=== PATIENT | male | born 1995 | race African-American/Black ===

== ENCOUNTER 2018-07-21 10:13 | Inpatient (IN) ==
[2018-07-21] MEDS ORDERED: Bisacodyl 10 MG Supp RECTAL PRN (10:39)
[2018-07-21] MEDS ORDERED: Aluminum/Magnesium/Simethacone Susp 30 ML UDC PO PRN (10:39)
[2018-07-21] MEDS ORDERED: Haloperidol Inj 5 MG/ML Ampul IM ONE ×2 (14:08→14:23)
[2018-07-21] MEDS ORDERED: Haloperidol Inj 5 MG/ML Ampul ONE (14:11)
--- NOTE | 2018-07-21 14:24 | P.CONPSY ---
Provisional Diagnosis Admission Date: July 21, 2018 10:40 [place] I.: Unspecified psychosis, R/O substance-induced psychosis, R/O schizophrenia, R/O cannabis use disorder [place] II.: Cluster A traits, R/O schizotypal personality [place] III.: No significant medical history [place] IV.: Limited interaction with friends, has stopped going to work, cannabis use [place] V.: 35 History of Present Illness Service: ER Primary Care Provider: UNKNOWN History of Present Illness: The patient is a 22-year-old -G[place]ian man, domiciled with his parents in [place], first time at [facility], employed, single, without no previous psychiatric history other than cannabis use disorder, no previous suicidal attempts, no previous psychiatric hospitalizations, no significant medical history, who was brought to the hospital on the Dia act transfer from [facility] in [place]. According with the Dia act the patient has been presenting new onset symptoms of psychosis consisting of paranoia and bizarre behavior. The patient was accepted by me through the transfer center. Paper chart was reviewed. Labs were unremarkable, as well as head CT. On my psychiatric evaluation today I find a patient that is quite oddly related, a little bit expansive and laughing inappropriately. Patient reports that he does not really know the reason he is here. He says that he has been doing quite okay at work, but a little bit of stress. He says that he has been using a lot of bottles of O2 to purify his blood and his skin. He says that he is a very spiritual person, and at this point he started laughing and says that he does not want to talk about this. The patient often becomes quite tangential and disorganized needing redirection. He denies suicidal and homicidal ideation , denies 12 and auditory hallucinations, even though he seems to be internally stimulated. Some point of the interview the patient become a little bit agitated, requesting to be discharged, hyperactive, tried to run away of the J pod and had to be medicated with 5 Haldol and 2 of Ativan. As per mother collateral information, Lisa Whipple, , patient was at baseline until about 4 days ago when he started to act very bizarre at home, walking back and forward, purposeless, and she noted that he was talking to himself very often inside his room. She became quite concerned when he stopped going to work and she noted that his was calling him concerned about these because the patient usually responsible with his job. She says that the patient has being a sleeping poorly, has not been taking showers, has been acting like another person taking very weird noises with his mouth. She says that the patient does not have any psychiatric history, but he is a very smart kid, that he was an honor student, but at the same time she says that in the last 2 years he has been mostly secluded, with no friends and mostly interacting with others through computer. She says that another concerning thing about the patient is that he has lost a significant amount of pounds in the last year intentionally, but he has been doing very we are diets, including using several borders of oxygen every day PPHx: No psychiatric history, no pre-suicide attempts, no previous psychiatric hospitalization PMHx: No medical history Social Hx: Patient was born and raised in [facility], he lives in [place] with his parents, employed, single, his highest level of education is high school Family Hx: No family psychiatric Substance Hx: He reports occasional use of marijuana denies other illegal drugs , denies use of alcohol Review of Systems All other systems reviewed negative except as stated in HPI Psychiatric: Reports irritability, Reports memory loss, Reports mood swings ( Internally stimulated), Reports paranoia PMFSH - History History Provided By: Patient - Medical History Medical History: Medical History (Last Updated 07/21/18 @ 10:42 by Holly Damon RN) Patient denies medical problems - Surgical History Surgical History: Surgical History (Last Updated 07/21/18 @ 10:42 by Holly Damon RN) No history of previous surgery - Tobacco History Second Hand Smoke Exposure: No Smoking Status: Never smoker - Alcohol History How Often Do You Have a Drink Containing Alcohol: Never - Substance Use History Substance History: No History of Abuse - Immunization History Tetanus Immunization: Unsure Medications and Allergies Active Medications: Active Medications Al Hydrox/Mg Hydrox/Simethicone (Mag-Al Plus Susp Liq) 30 ml PO Q6H PRN PRN Reason: DYSPEPSIA Al Hydroxide/Mg Hydroxide (Milk Of Magnesia Liq) 30 ml PO Q12H PRN PRN Reason: Mild Constipation Bisacodyl (Dulcolax Supp) 10 mg RECTAL DAILY PRN PRN Reason: SEVERE CONSITIPATION Lactulose (Lactulose Liq) 30 ml PO DAILY PRN PRN Reason: SEVERE CONSITIPATION Senna/Docusate Sodium (Jovita-Colace) 1 tab PO BID SARAH Sennosides (Senokot) 17.2 mg PO Q12H PRN PRN Reason: Moderate Constipation Allergies Allergy/AdvReac Type Severity Reaction Status Date / Time No Known Allergies Allergy Verified 07/21/18 10:38 Home Medications Medication Instructions Recorded Confirmed Type No Known Home Medications 07/21/18 07/21/18 History Exam Vital signs: Vital Signs 07/21/18 10:38 Temperature 97.6 F Pulse Rate 62 Respiratory Rate 14 Blood Pressure 133/82 Pulse Oximetry 97 Intake & Output 07/20/18 07/21/18 07/21/18 18:59 06:59 18:59 Weight 78 kg Mental Status Examination Appearance: Appropriate Consciousness: Alert Orientation: x4 Motor Activity: Normal gait Speech: Unremarkable Language: Adequate Fund of Knowledge: Adequate Attention and Concentration: Adequate Memory: Unremarkable Mood: Irritable Affect: Irritable, Other (Inappropriate) Thought Process & Associations: Loose associations Thought Content: Bizarre thinking, Racing thoughts, Preoccupations, Delusional Hallucination Type: None Delusion Type: Bizarre, Paranoid Suicidal Ideation: No Suicidal Plan: No Suicidal Intention: No Homicidal Ideation: No Homicidal Plan: No Homicidal Intention: No Insight: Poor Judgment: Poor Assessment and Plan - Assessment (1) Unspecified psychosis Code(s): F29 - Unspecified psychosis not due to a substance or known physiological condition Status: Acute - Plan Plan: On psychiatric evaluation today the patient presents very oddly related, with an appropriate and labile affect, internally preoccupied and tangential. During the evaluation the patient becomes paranoid, agitated and try to elope from the J pod needing to be medicated with Haldol 5 mg and Ativan 2 mg IM. As per mother, the patient in the last 4 days has been acting out of character, talking to himself, secluded in his room, not taking care of himself, has not gone to work and has been sleeping poorly. He does not have any previous psychiatric history, no hospitalizations, no suicide attempts. He does not use cannabis and has been increasingly using borders of Liquid oxygen in his diet "to clean his blood and to be healthier". Routine labs and head CT done in [facility] are unremarkable. Patient has elevated risk of danger to self and others due to the level of psychosis. He needs psychiatric admission for stabilization. We will start the patient in Abilify 5 mg daily for psychosis. Will be transferred to 2700 unit. Justification for Continued Inpatient Stay: Continue psychiatric admission
--- NOTE | 2018-07-21 14:24 | ED ---
HPI General Chief Complaint: Psychiatric Symptoms Stated Complaint: Tejasy Eval Time Seen by Provider: 07/21/18 14:04 Source: other (Dia act report and previous medical record from transfer facility) Mode of arrival: ambulatory Limitations: other (Aggressive behavior, agitated) History of Present Illness HPI Narrative: Due to the patient being unsafe to make contact with, agitated, and angry at this time, my HPI is limited. I reviewed his Dia act report and previous records from the transferring facility, [facility]. 22- year-old male presents to the emergency department under Dia act as a transfer from [facility]. The patient is agitated, uncooperative , and is being observed and calmed by security at this time. They say it is unsafe to question the patient, as it just makes him more irritated and angry. My HPI was obtained from the nurses, previous medical records at the transferring facility, and Dia act report. According to the Dia act report the patient is acutely psychotic with hallucinations, laughing inappropriately, acting bizarre and getting agitated and angry. Patient does not have ability to make decisions and is a danger to himself. According to the HPI from [facility] the patient was brought into the ED complaining of hearing things and seeing things, displaying bizarre behaviors for the past 4-5 days. States the patient is a poor historian, acting silly and bizarre, getting upset making faces while watching TV. The mother reported that the patient did fast for 2 weeks during giving time, drink water and ate kale salad for several days. He also use the supplement "improving held at cellular level 02", 15 drops sublingual 3 times a day. Mother found the bottle and emptied it. Patient is not going to work for 3-4 days isolated in his room his boss is asking voluntary resignation. The patient denied suicidal homicidal ideations or plans. Patient is acting very silly and getting agitated during the interview. He was home schooled and completed 12 grade. Mother reported that he is not sleeping and playing video games with friends at night at times. Related Data Home Medications Medication Instructions Recorded Confirmed No Known Home Medications 07/21/18 07/21/18 Allergies Allergy/AdvReac Type Severity Reaction Status Date / Time No Known Allergies Allergy Verified 07/21/18 10:38 Review of Systems ROS Unobtainable ROS Unobtainable: unobtainable due to mental condition (Patient is unsafe to question at this time secondary to agitation and anger) and other PMFSH Medical History Medical History Patient denies medical problems (Acute) Surgical History Surgical History No history of previous surgery (Acute) Social History Social History Substance History: No History of Abuse Second Hand Smoke Exposure: No Smoking Status: Never smoker How Often Do You Have a Drink Containing Alcohol: Never Immunization History Tetanus Immunization: Unsure Exam Narrative Exam Narrative: Physical exam is limited secondary to patient being unsafe to approach at this time; physical exam done by visualization GENERAL: Well-nourished, well-developed black male patient, in no acute distress ; agitated SKIN: Warm and dry. HEAD: Atraumatic. Normocephalic. EYES: Pupils equal and round. No scleral icterus. No injection or drainage. ENT: Mucosa pink and moist. Airway patent. NECK: Trachea midline. CARDIOVASCULAR: Regular rate. RESPIRATORY: No accessory muscle use. GASTROINTESTINAL: Flat. MUSCULOSKELETAL: No obvious deformities. NEUROLOGICAL: Awake and alert. No obvious cranial nerve deficits. Motor grossly within normal limits. Normal speech. PSYCHIATRIC: Agitated, angry Course Initial Documented Vital Signs Temperature 97.6 F 07/21/18 10:38 Pulse Rate 62 07/21/18 10:38 Respiratory Rate 14 07/21/18 10:38 Blood Pressure 133/82 07/21/18 10:38 Pulse Oximetry 97 07/21/18 10:38 Last Documented Vital Signs Temperature 98.5 F 07/21/18 15:18 Pulse Rate 68 07/21/18 15:18 Respiratory Rate 16 07/21/18 15:18 Blood Pressure 144/69 H 07/21/18 15:18 Pulse Oximetry 100 07/21/18 15:18 Medical Decision Making MDM Narrative Medical decision making narrative: Patient presents under a Dia act. Physical examination by visualization and vital signs are essentially unremarkable. Patient was received by transfer facility and accepted for inpatient admission by Dr. Richardson, who has already admitted him to psychiatry. I reviewed the patient's medical records from transferring facility and CBC, CMP , urinalysis unremarkable. Positive for cannabinoids, otherwise drug screen is negative. EtOH less than 10. CT brain was unremarkable. Patient is medically cleared for psychiatry. Medical Screen Exam Complete: Yes Emergency Medical Condition: Yes Differential Diagnosis Differential Diagnosis: Acute psychosis, schizophrenia, substance-induced psychosis, medical clearance for psychiatric evaluation Discharge Plan Discharge Disposition Patient Disposition: Sign Out(ED Internal Use Only) Discharge Condition Condition: Stable Discharge Order Discharge Orders: ED Use Only Admit Order (Routine); Ordered 07/21/18 Ordered By: Praneeth Morales Discharge Details Diagnosis: Encounter for psychiatric assessment Physicians Team ED Provider: Osmin Ramirez ED Midlevel Provider: Mary Gregory Primary Care Provider: UNKNOWN, Attending Provider: Praneeth Morales Discharge Interventions Interventions: ED Discharge Assessment Last Done: 07/21/18 15:10 Vital Signs Last Done: 07/21/18 15:18 Status ED Status: Admitted Patient
[2018-07-21] MEDS: Senna/Docusate Sodium 8.6/50 MG Tablet PO SCH (21:26)
[2018-07-22] MEDS: Senna/Docusate Sodium 8.6/50 MG Tablet PO SCH ×2 (09:20→21:39)
[2018-07-22 11:40] LABS: Anion Gap 8 meq/L (5-15); Blood Urea Nitrogen 7 mg/dL (7-18); Calcium 8.5 mg/dL (8.5-10.1); Carbon Dioxide 28.5 meq/L (21.0-32.0); Chloride 107 meq/L (98-107); Glomerular Filtration Rate Greater Than 89 mL/min (>89); Glucose,Random 83 mg/dL (74-106); Potassium 4.1 meq/L (3.5-5.1); Sodium 143 meq/L (136-145)
[2018-07-22 11:41] LABS: Cholesterol 86 mg/dL (120-200); Triglycerides 57 mg/dL (42-150)
[2018-07-22 11:43] LABS: Chol/HDL Ratio 1.59 Ratio; HDL Cholesterol 53.8 mg/dL (40.0-60.0); LDL Cholesterol,Calculated 21 mg/dL (0-99)
[2018-07-22 14:05] LABS: Hemoglobin A1c 5.5 % (4.3-6.0)
--- NOTE | 2018-07-22 16:27 | P.HPPSY ---
Provisional Diagnosis Admission Date: July 21, 2018 10:40 [place] I.: Unspecified psychosis, R/O substance-induced psychosis, R/O schizophrenia, R/O cannabis use disorder [place] II.: Cluster A traits, R/O schizotypal personality [place] III.: No significant medical history [place] IV.: Limited interaction with friends, has stopped going to work, cannabis use [place] V.: 35 Competence Certification of Person's Competence To Provide Express and Informed Consent I have personally examined Red Whipple JR, a person being served at [facility] onJuly 22, 2018 1622. Express and informed consent means consent voluntarily given in writing, by a competent person, after sufficient explanation and disclosure of the subject matter involved to enable the person to make a knowing and willful decision without any element of force, fraud, deceit, duress, or other form of constraint or coercion. This person is 18 years of age or older, is not now known to be incompetent to consent to treatment with a guardian advocate, and does not have a health care surrogate or proxy currently making medical treatment decisions. I have found this person to be one of the following: [] Competent to provide express and informed consent, as defined above, for voluntary admission to this facility and is competent to provide express and informed consent for treatment. He/she has the consistent capacity to make well reasoned, willful, and knowing decisions concerning his or her medical or mental health treatment. The person fully and consistently understands the purpose of the admission for examination/placement and is fully capable of personally exercising all rights assured [place] [X] Incompetent to provide express and informed consent to voluntary admission, and this is incompetent to provide express and informed consent to treatment. The person must be transferred to involuntary status and a petition for a guardian advocate filed with the Circuit Court. [] Refusing to provide express and informed consent to voluntary admission but is competent to provide express and informed consent for treatment. The person must be discharged or transferred to involuntary status. Form shall be completed within 24 hours of a person's arrival at the receiving facility and filed in the clinical record of each person: 1. Admitted on a voluntary basis 2. Permitted to provide express and informed consent to his/her own treatment 3. Allowed to transfer from involuntary to voluntary status 4. Prior to permitting a person to consent to his or her own treatment after having been previously found incompetent to consent to treatment. History of Present Illness Capacity: Lacks capacity History of Present Illness: Patient is a 22-year-old male with cannabis use disorder no other psychiatric history presenting here with a Dia act with bizarre behavior. Patient was already petitioned by the psychiatrist. As noted below, patient has been acting bizarre and disorganized. Responding to internal stimuli. Patient has very poor insight concerning his behavior and admission and says "I am 22 years old, I am just the a fun rosio." Nursing notes patient responding to internal stimuli, laughing inappropriately. Last night he was agitated and closely getting en eto but ended up not getting one. At this time, he denies auditory or visual hallucinations, no specific delusions were elicited. He denies suicidal or homicidal ideation intent or plan. Patient denies history of manic episodes after reviewing criteria with him. Denies depressed mood According with the Dia act the patient has been presenting new onset symptoms of psychosis consisting of paranoia and bizarre behavior. The patient was accepted by me through the transfer center. Paper chart was reviewed. Labs were unremarkable, as well as head CT. On my psychiatric evaluation today I find a patient that is quite oddly related, a little bit expansive and laughing inappropriately. Patient reports that he does not really know the reason he is here. He says that he has been doing quite okay at work, but a little bit of stress. He says that he has been using a lot of bottles of O2 to purify his blood and his skin. He says that he is a very spiritual person, and at this point he started laughing and says that he does not want to talk about this. The patient often becomes quite tangential and disorganized needing redirection. He denies suicidal and homicidal ideation, denies 12 and auditory hallucinations, even though he seems to be internally stimulated. Some point of the interview the patient become a little bit agitated, requesting to be discharged, hyperactive, tried to run away of the J pod and had to be medicated with 5 Haldol and 2 of Ativan. As per mother collateral information, Edgardo Whipple, , patient was at baseline until about 4 days ago when he started to act very bizarre at home, walking back and forward, purposeless, and she noted that he was talking to himself very often inside his room. Past psych: No inpatient, outpatient, medication history Past medical: Denies Past Famhx: Denies Past Social: Patient graduated high school and works full-time from home. 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 Uses marijuana sporadically. - Inpatient Certification I certify that the inpatient services were ordered in accordance with Medicare regulations governing the order. This includes certification that hospital inpatient services are reasonable and necessary and in the case of services not specified as inpatient-only under 42 CFR 419.22(n), that they are appropriately provided as inpatient services in accordance to with the 2-midnight benchmark under 43 CFR 412.3(e) I certify that inpatient psychiatric hospital services are medically necessary. Evaluation and treatment and/or diagnostic testing are expected to improve the patient's condition. The patient needs on a daily basis, active treatment furnished directly by or requiring the supervision of inpatient psychiatric facility personnel. Estimated Total Length of Stay (Days): 7 Plans for Post Hospital Care: Home Review of Systems All other systems reviewed negative except as stated in HPI PMFSH - History History Provided By: Patient - Medical History Medical History: Medical History (Last Reviewed 07/21/18 @ 15:32 by PERICO Melendrez) Patient denies medical problems - Surgical History Surgical History: Surgical History (Last Reviewed 07/22/18 @ 16:27 by Severino Hansen DO) No history of previous surgery - Tobacco History Second Hand Smoke Exposure: No Smoking Status: Never smoker - Alcohol History How Often Do You Have a Drink Containing Alcohol: Never - Substance Use History Substance History: No History of Abuse - Travel History Recent Travel in the [place] Within the Last 8 Weeks: No Recent Travel Out of the Country Within the Last 8 Weeks: No - Immunization History Tetanus Immunization: Unsure Hx Influenza Vaccine This Season: No Medications and Allergies Active Medications: Active Medications Al Hydrox/Mg Hydrox/Simethicone (Mag-Al Plus Susp Liq) 30 ml PO Q6H PRN PRN Reason: DYSPEPSIA Al Hydroxide/Mg Hydroxide (Milk Of Magnesia Liq) 30 ml PO Q12H PRN PRN Reason: Mild Constipation Bisacodyl (Dulcolax Supp) 10 mg RECTAL DAILY PRN PRN Reason: SEVERE CONSITIPATION Lactulose (Lactulose Liq) 30 ml PO DAILY PRN PRN Reason: SEVERE CONSITIPATION Senna/Docusate Sodium (Jovita-Colace) 1 tab PO BID SARAH Last Admin: 07/22/18 09:20 Dose: Not Given Sennosides (Senokot) 17.2 mg PO Q12H PRN PRN Reason: Moderate Constipation Allergies Allergy/AdvReac Type Severity Reaction Status Date / Time No Known Allergies Allergy Verified 07/21/18 10:38 Home Medications Medication Instructions Recorded Confirmed Type No Known Home Medications 07/21/18 07/21/18 History Results - Labs CBC & Chem 7: 07/22/18 10:38 Labs: Laboratory Results - last 24 hr 07/22/18 07/22/18 10:38 10:38 Sodium 143 Potassium 4.1 Chloride 107 Carbon Dioxide 28.5 Anion Gap 8 BUN 7 Creatinine 0.81 Estimated GFR Greater than 89 Random Glucose 83 Hemoglobin A1c 5.5 Calcium 8.5 Triglycerides 57 Cholesterol 86 L LDL Cholesterol, Calc 21 HDL Cholesterol 53.8 Cholesterol/HDL Ratio 1.59 Exam Vital signs: Vital Signs 07/22/18 06:00 Temperature 98.3 F Pulse Rate 78 Respiratory Rate 18 Blood Pressure 128/80 Pulse Oximetry 99 Intake & Output 07/21/18 07/22/18 07/22/18 18:59 06:59 18:59 Weight 75 kg 75 kg Other: Weight On Admission 75 kg Mental Status Examination Appearance: Appropriate Consciousness: Alert Orientation: x4 Motor Activity: Normal gait Speech: Unremarkable Language: Adequate Fund of Knowledge: Adequate Attention and Concentration: Adequate Memory: Unremarkable Mood: Irritable Affect: Irritable, Other (Inappropriate) Thought Process & Associations: Loose associations Thought Content: Bizarre thinking, Racing thoughts, Preoccupations, Delusional Hallucination Type: None Delusion Type: Bizarre, Paranoid Suicidal Ideation: No Suicidal Plan: No Suicidal Intention: No Homicidal Ideation: No Homicidal Plan: No Homicidal Intention: No Insight: Poor Judgment: Poor Assessment and Plan - Assessment (1) Unspecified psychosis Code(s): F29 - Unspecified psychosis not due to a substance or known physiological condition Status: Acute - Plan Plan: I agree with the first opinion to continue petition. Criteria include acute psychosis. A call was placed to the patient's mother, edgardo, but there was no answer. I recommend another phone call tomorrow to get more collateral and get consent for medication Justification for Continued Inpatient Stay: Patient would decompensate in a less restrictive setting
[2018-07-23] MEDS: Senna/Docusate Sodium 8.6/50 MG Tablet PO SCH ×2 (08:11→20:54)
--- NOTE | 2018-07-23 10:49 | P.PNPSY ---
Subjective Remarks: Patient seen and examined with nurse, Bekah in weekend coverage for Dr. Morales. Admission note by Dr. Hansen noted. On my exam, patient presents as oddly related with a silly affect. He denies AVH but appears internally stimulated. He denies SI/HI. Mood is "excellent!" No physical complaints. Spoke with patient's mother, Lisa Whipple, at number in Dr. Morales's note. We discuss patient's history and circumstances of patient's presentation here. She is willing to serve as HCS. Lengthy discussion with mother regarding pharmacotherapeutic options for empiric management of psychotic symptoms. We discussed the typical and atypical antipsychotic classes. We reviewed the metabolic and motor side effects including EPS, tardive dyskinesia and NMS of antipsychotic therapy. We settle on a trial of Geodon. I spent 12 minutes in telephone consultation with patient's mother. Vital Signs Temp Pulse Resp BP Pulse Ox 07/23/18 06:00 98 F 58 L 17 141/90 H 100 07/22/18 18:06 98.2 F 68 18 128/77 98 Laboratory Tests 07/22/18 07/22/18 10:38 10:38 Sodium 143 Potassium 4.1 Chloride 107 Carbon Dioxide 28.5 Anion Gap 8 BUN 7 Creatinine 0.81 Estimated GFR Greater than 89 Random Glucose 83 Hemoglobin A1c 5.5 Calcium 8.5 Triglycerides 57 Cholesterol 86 L LDL Cholesterol, Calc 21 HDL Cholesterol 53.8 Cholesterol/HDL Ratio 1.59 Review of Systems All other systems reviewed negative except as stated in HPI (Limitation: Psychosis) Mental Status Examination Appearance: Appropriate Consciousness: Alert Orientation: x4 Motor Activity: Normal gait, Other (No motor abnormalities noted) Speech: Unremarkable Language: Adequate Fund of Knowledge: Adequate Attention and Concentration: Adequate Memory: Unremarkable Mood: Other ("Excellent") Affect: Other (Somewhat expansive) Thought Process & Associations: Loose associations Thought Content: Bizarre thinking, Hallucinations Hallucination Type: Other (Denies AVH but appears internally preoccupied) Delusion Type: None Suicidal Ideation: No Suicidal Plan: No Suicidal Intention: No Homicidal Ideation: No Homicidal Plan: No Homicidal Intention: No Insight: Poor Judgment: Poor Assessment and Plan - Assessment (1) Unspecified psychosis Code(s): F29 - Unspecified psychosis not due to a substance or known physiological condition Status: Acute - Plan Plan: Initiate Geodon 40 mg twice daily with meals to target psychotic symptoms with plans to titrate as tolerated and to effect. Check EKG for QTC. Hold antipsychotic if QTC is greater than 450 ms. Continue to monitor on inpatient unit. Continue other medications and care as ordered. Justification for Continued Inpatient Stay: Impairment in reality construction. High risk for decompensation and less restrictive environment. Medication changes. Discharge Planning: Pending psychiatric stabilization. Request Healthcare Surrogate/Guardian Advocate?: Yes
[2018-07-23 15:56] VITALS: RESP 18
[2018-07-24] MEDS: Senna/Docusate Sodium 8.6/50 MG Tablet PO SCH ×2 (08:39→21:14)
--- NOTE | 2018-07-24 12:16 | P.PNPSY ---
Subjective Remarks: The patient was seen today for psychiatric reevaluation. Case was discussed with nursing charge. The patient was seen in the recreational area of [id number]. On my psychiatric evaluation the patient is found interacting with other peers, he is calm, cooperative, pleasant. Patient reports that he has been having a very good time here in the unit, he seems to be childish and silly, but appropriate affect. He reports to be taking his medications, no significant side effects, the patient has a times quite bizarre ideas, but he does not seem to be floridly psychotic, he denies suicidal and homicidal ideation, he denies visual and auditory hallucinations. He is fully oriented x3. No agitation, no aggressive behavior reported. Mental Status Examination Appearance: Appropriate Consciousness: Alert Orientation: x4 Motor Activity: Normal gait, Other (No motor abnormalities noted) Speech: Unremarkable Language: Adequate Fund of Knowledge: Adequate Attention and Concentration: Adequate Memory: Unremarkable Mood: Other ("Excellent") Affect: Other (Somewhat expansive) Thought Process & Associations: Loose associations Thought Content: Bizarre thinking, Hallucinations Hallucination Type: Other (Denies AVH but appears internally preoccupied) Delusion Type: None Suicidal Ideation: No Suicidal Plan: No Suicidal Intention: No Homicidal Ideation: No Homicidal Plan: No Homicidal Intention: No Insight: Poor Judgment: Poor Assessment and Plan - Assessment (1) Unspecified psychosis Code(s): F29 - Unspecified psychosis not due to a substance or known physiological condition Status: Acute - Plan Plan: Patient presents oddly related, at times bizarre, but denies suicidal enemas ideation, he denies visual and auditory hallucinations. The patient is compliant with medications. Justification for Continued Inpatient Stay: Continue psychiatric admission for stabilization. Request Healthcare Surrogate/Guardian Advocate?: Yes
--- NOTE | 2018-07-24 12:26 | ECG ---
Date Performed: 07/23/2018 Time Performed: 13:08:15 PTAGE: 22 years EKG: Sinus rhythm NORMAL ECG NO PREVIOUS TRACING DOCTOR: Venkatesh Beltrán Interpretating Date/Time 07/24/2018 12:24:12
[2018-07-25 06:04] VITALS: BP 119/82; PULSE 55; TEMP 97.8; O2SAT 100
[2018-07-25] MEDS: Senna/Docusate Sodium 8.6/50 MG Tablet PO SCH (08:39)
--- NOTE | 2018-07-25 11:46 | P.DSPSY ---
Psychiatry Discharge Summary Inpatient Psychiatric care?: Yes Advance Directives: No Mental Health Advance Directive: Yes Health Care Proxy: Yes - Admission Admission Date: July 21, 2018 10:40 Brief History: Patient is a 22-year-old male with cannabis use disorder no other psychiatric history presenting here with a Dia act with bizarre behavior. Patient was already petitioned by the psychiatrist. As noted below, patient has been acting bizarre and disorganized. Responding to internal stimuli. Patient has very poor insight concerning his behavior and admission and says "I am 22 years old, I am just the a fun rosio." Nursing notes patient responding to internal stimuli, laughing inappropriately. Last night he was agitated and closely getting en eto but ended up not getting one. At this time, he denies auditory or visual hallucinations, no specific delusions were elicited. He denies suicidal or homicidal ideation intent or plan. Patient denies history of manic episodes after reviewing criteria with him. Denies depressed mood According with the Dia act the patient has been presenting new onset symptoms of psychosis consisting of paranoia and bizarre behavior. The patient was accepted by me through the transfer center. Paper chart was reviewed. Labs were unremarkable, as well as head CT. On my psychiatric evaluation today I find a patient that is quite oddly related, a little bit expansive and laughing inappropriately. Patient reports that he does not really know the reason he is here. He says that he has been doing quite okay at work, but a little bit of stress. He says that he has been using a lot of bottles of O2 to purify his blood and his skin. He says that he is a very spiritual person, and at this point he started laughing and says that he does not want to talk about this. The patient often becomes quite tangential and disorganized needing redirection. He denies suicidal and homicidal ideation, denies 12 and auditory hallucinations, even though he seems to be internally stimulated. Some point of the interview the patient become a little bit agitated, requesting to be discharged, hyperactive, tried to run away of the J pod and had to be medicated with 5 Haldol and 2 of Ativan. As per mother collateral information, Lisa Whipple, , patient was at baseline until about 4 days ago when he started to act very bizarre at home, walking back and forward, purposeless, and she noted that he was talking to himself very often inside his room. Past psych: No inpatient, outpatient, medication history Past medical: Denies Past Famhx: Denies Past Social: Patient graduated high school and works full-time from home. 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 Uses marijuana sporadically. Tobacco Use In Past 30 Days: No How Often Do You Have a Drink Containing Alcohol: Never Hospital Course: The patient is a 22-year-old -Swedish man, domiciled with his parents in [place], first time at [facility], employed, single, without no previous psychiatric history other than cannabis use disorder, no previous suicidal attempts, no previous psychiatric hospitalizations, no significant medical history, who was brought to the hospital on the Dia act transfer from [facility] in [place]. According with the Dia act the patient has been presenting new onset symptoms of psychosis consisting of paranoia and bizarre behavior. The patient was accepted by me through the transfer center. Paper chart was reviewed. Labs were unremarkable, as well as head CT. Patient was initially admitted due to bizarre behavior, paranoia, self talking. He was a started taking Geodon 20 mg 2 times daily that was titrated up to 40 mg twice daily, as patient could tolerate. During that hospitalization the patient showed significant improvement with this regimen. He was quite social, well behaved, initially calm and cooperative. No agitation, no aggressive behavior reported. At the moment of the discharge the patient continues to be a little bit oddly related, but logical, coherent and relevant, he denies suicidal enemas ideation, denies visual and auditory hallucinations. The patient is in a good moment, and a low level of risk, to continue his psychiatric care as an outpatient. - Discharge Discharge Date: 07/25/18 - Discharge Diagnosis (1) Unspecified psychosis Code(s): F29 - Unspecified psychosis not due to a substance or known physiological condition Status: Acute Discharge Disposition: Home - Discharge Instructions Discharge Diet: Regular Diet Activities You Can Perform: Regular- No Restrictions - Discharge Time > 30 minutes Mental Status Examination Appearance: Appropriate Consciousness: Alert Orientation: x4 Motor Activity: Normal gait, Other (No motor abnormalities noted) Speech: Unremarkable Language: Adequate Fund of Knowledge: Adequate Attention and Concentration: Adequate Memory: Unremarkable Mood: Appropriate Affect: Other (Somewhat expansive) Thought Process & Associations: Loose associations Thought Content: Bizarre thinking, Hallucinations Hallucination Type: Other (Denies AVH but appears internally preoccupied) Delusion Type: None Suicidal Ideation: No Suicidal Plan: No Suicidal Intention: No Homicidal Ideation: No Homicidal Plan: No Homicidal Intention: No Insight: Fair Judgment: Impulsive Discharge/Advance Care Plan - Results Vital Signs: Last Vital Signs Temp 97.8 F 07/25/18 06:03 Pulse 55 L 07/25/18 06:03 Resp 18 07/25/18 06:03 BP 119/82 07/25/18 06:03 Pulse Ox 100 07/25/18 06:03 Lab Results: Laboratory Results Hemoglobin A1c 5.5 % (4.3-6.0) 07/22/18 10:38 Triglycerides 57 mg/dL (42-150) 07/22/18 10:38 Cholesterol 86 mg/dL (120-200) L 07/22/18 10:38 LDL Cholesterol, Calc 21 mg/dL (0-99) 07/22/18 10:38 HDL Cholesterol 53.8 mg/dL (40.0-60.0) 07/22/18 10:38 Summary of Procedures: None Pending Results: None - Medications Number of antipsychotic medications at discharge: 1 - Discharge Care Plan Goals to Promote Your Health: * To prevent worsening of your condition and complications * To maintain your health at the optimal level Directions to Meet Your Goals: Take your medications as prescribed Follow your dietary instruction Follow activity as directed Keep your appointments as scheduled Take your immunizations and boosters as scheduled If your symptoms worsen call your PCP, if no PCP go to Urgent Care Center or Emergency Room For 28/02 questions related to your inpatient stay or results of tests pending at discharge, please contact Dr. Praneeth Morales MD at Smoking is Dangerous to Your Health. Avoid second hand smoking
== END 2018-07-25 15:45 | disposition home or self-care (01) ==
LOC: NEPJ 10:13 → NEDA 10:40 → H270 15:10
PROVIDERS: ADMIT Psychiatry & Neurology Psychiatry; ATTEND Psychiatry & Neurology Psychiatry

== ENCOUNTER 2018-08-14 14:38 | Inpatient (IN) ==
[2018-08-14 16:18] LABS: Bilirubin,Urine Negative (Negative); Clarity,Urine Clear (Clear); Color,Urine Yellow (Yellw/Straw); Glucose,Urine (UA) Negative (Negative); Leukocyte Esterase,Urine Negative (Negative); Mucus,Urine Few /lpf (Occasional); Nitrite,Urine Negative (Negative); Specific Gravity,Urine 1.017 (1.002-1.035)
[2018-08-14 16:23] LABS: Amphetamine Screen,Urine Neg (Neg); Barbiturate Screen,Urine Neg (Neg); Cannabinoid Screen,Urine Neg (Neg); Cocaine Screen,Urine Neg (Neg)
[2018-08-14 16:32] LABS: Opiate Screen,Urine Neg (Neg)
[2018-08-14 17:05] LABS: Hematocrit 36.5 % (39.0-51.0); Hemoglobin 12.6 gm/dL (13.0-17.0); Mean Corpuscular HGB Conc 34.6 % (32.0-36.0); Mean Corpuscular Hemoglobin 31.5 pg (27.0-34.0); Mean Corpuscular Volume 90.9 fL (80.0-100.0); Mean Platelet Volume 7.3 fL (7.0-11.0); Platelet Count 267 th/mm3 (150-450); Red Blood Count 4.01 mil/mm3 (4.50-5.90); Red Cell Distribution Width 16.3 % (11.6-17.2); White Blood Count 5.7 th/mm3 (4.0-11.0)
[2018-08-14 17:31] LABS: Albumin 3.8 g/dL (3.4-5.0); Anion Gap 7 meq/L (5-15); Aspartate Aminotransferase 12 U/L (15-39); Blood Urea Nitrogen 8 mg/dL (7-18); Calcium 8.6 mg/dL (8.5-10.1); Carbon Dioxide 24.8 meq/L (21.0-32.0); Chloride 111 meq/L (98-107); Glomerular Filtration Rate Greater Than 89 mL/min (>89); Glucose,Random 81 mg/dL (74-106); Potassium 4.1 meq/L (3.5-5.1); Sodium 143 meq/L (136-145)
[2018-08-14 17:43] LABS: Alanine Aminotransferase 26 U/L (9-52); Alkaline Phosphatase 79 U/L (45-117); Thyroid Stimulating Hormone 0.969 uIU/mL (0.358-3.740); Total Protein 7.5 g/dL (6.4-8.2)
[2018-08-14 17:44] LABS: Alcohol 16 mg/dL (0-5)
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
[2018-08-14] MEDS ORDERED: Divalproex 500 MG ER Tablet PO SCH (22:00)
[2018-08-14] MEDS ORDERED: Acetaminophen 325 MG Tablet PO PRN (22:02)
[2018-08-14] MEDS ORDERED: Aluminum/Magnesium/Simethacone Susp 30 ML UDC PO PRN (22:02)
[2018-08-15 06:56] LABS: Anion Gap 5 meq/L (5-15); Blood Urea Nitrogen 7 mg/dL (7-18); Calcium 8.8 mg/dL (8.5-10.1); Carbon Dioxide 27.7 meq/L (21.0-32.0); Chloride 107 meq/L (98-107); Glomerular Filtration Rate Greater Than 89 mL/min (>89); Glucose,Random 79 mg/dL (74-106); Potassium 3.8 meq/L (3.5-5.1); Sodium 140 meq/L (136-145)
[2018-08-15 06:58] LABS: Cholesterol 84 mg/dL (120-200); Triglycerides 38 mg/dL (42-150)
[2018-08-15 07:00] LABS: Chol/HDL Ratio 1.51 Ratio; HDL Cholesterol 55.5 mg/dL (40.0-60.0); LDL Cholesterol,Calculated 21 mg/dL (0-99)
--- NOTE | 2018-08-15 11:38 | P.HPPSY ---
Provisional Diagnosis Admission Date: August 14, 2018 21:02 [place] I.: Bipolar disorder most recent episode mixed with psychotic features Competence Certification of Person's Competence To Provide Express and Informed Consent I have personally examined Red Whipple JR, a person being served at [facility] on, August 15, 2018 1117. Express and informed consent means consent voluntarily given in writing, by a competent person, after sufficient explanation and disclosure of the subject matter involved to enable the person to make a knowing and willful decision without any element of force, fraud, deceit, duress, or other form of constraint or coercion. This person is 18 years of age or older, is not now known to be incompetent to consent to treatment with a guardian advocate, and does not have a health care surrogate or proxy currently making medical treatment decisions. I have found this person to be one of the following: [] Competent to provide express and informed consent, as defined above, for voluntary admission to this facility and is competent to provide express and informed consent for treatment. He/she has the consistent capacity to make well reasoned, willful, and knowing decisions concerning his or her medical or mental health treatment. The person fully and consistently understands the purpose of the admission for examination/placement and is fully capable of personally exercising all rights assured [place] [] Incompetent to provide express and informed consent to voluntary admission, and this is incompetent to provide express and informed consent to treatment. The person must be transferred to involuntary status and a petition for a guardian advocate filed with the Circuit Court. [xxx] Refusing to provide express and informed consent to voluntary admission but is competent to provide express and informed consent for treatment. The person must be discharged or transferred to involuntary status. Form shall be completed within 24 hours of a person's arrival at the receiving facility and filed in the clinical record of each person: 1. Admitted on a voluntary basis 2. Permitted to provide express and informed consent to his/her own treatment 3. Allowed to transfer from involuntary to voluntary status 4. Prior to permitting a person to consent to his or her own treatment after having been previously found incompetent to consent to treatment. History of Present Illness Capacity: Has capacity Chief Complaint: "I jumped over the counter because it kept threatening to hospitalize me" History of Present Illness: Patient is a 22-year-old male who was brought to [facility] ER law enforcement officers with a Dia act order submitted by the patient's outpatient mental health provider. According to the Dia act report, the patient had presented to the [facility] for his discharge follow -up appointment on Tuesday and before even being seen he became agitated and threatening towards clinic staff and tried to climb over the counter to get into the administrative area threatening to harm staff a total of 3 times. The patient then reportedly left the clinic and the provider went to discuss his behaviors and he again threatened to harm the provider. Since the patient's arrival to [facility], he has been demonstrating labile affect (dysphoric and isolative behavior contrasting with euphoric affect and behaviors such as dancing on the unit) hyperactive behavior and lack of insight into his condition. The patient denies that he was intoxicated on alcohol at the time of his appointment however there was positive blood alcohol level on his admission to the ER. He blames the altercation at the clinic with clinic staff as well as his mother threatening him with hospitalization. The patient denies that he threatened to harm anyone. The patient reports that he has been adherent to his discharge medications which include Risperdal 2 mg at bedtime and Depakote ER 1000 mg at bedtime and this was corroborated by a Depakote level in the ER which was 50. Patient does complain of nausea and excess sedation which he believes is from the Risperdal and would not sign informed consents for the 2 mg dose but would agree to a lowered 1 mg dose of Risperdal and an increase of the Depakote to 1500 mg at bedtime when it was explained to him that his blood results indicated he was on the low end of therapeutic range. As for his mood, the patient reports "I feel great" which is not congruent with his affect which appears dysphoric. He insists that he is getting up to 5 hours of sleep at night and that is enough. He does admit to increased energy and increased psychomotor activity but denies any suicidal ideations or homicidal ideations. As for psychosis, the patient denies any active auditory or visual hallucinations. The patient does make false statements but it is not clear whether these are delusional or manifestation of his denial and lack of insight. Past psychiatric history: Past Diagnoses: Brief psychotic disorder diagnosed on 2 previous admissions in July 2018. Hospitalizations: Two previous admissions from 21 July - 25 July 2018 at [facility], and 02 August - 08 Aug 2018. Suicidal behavior: The patient denies and the family denies. Violent behavior: The patient reportedly was combative with family prior to his July hospitalizations and became aggressive and threatening with outpatient MH provider on 08/14/18. Past psychotropic medication trials: Latuda was started on initial admission but unaffordable and changed to Risperdal, and Depakote added on last admission due to signs and symptoms of mixed lorna. Outpatient MH treatment: Referred to [facility] for discharge follow-up appointment on 08/14/18 Substance Use Treatment: None Abuse/assault history: None Family psychiatric history: None Psychosocial history: Patient was born and raised in [place]. Intact family with one older sister. 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 The patient reports that he chose to work instead of going to college because he needed to support his family. 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 Patient currently lives with his parents. Patient admits that he has no physical friends but has many online friends. Patient remains mostly isolated to the's home with his family but this has been consistent with his personality according to the mother. As for legal history, there is been no arrests. Substance Use history: Tobacco use: None Alcohol use: None, but BAL=15 on admission to ED 08/14/18 Cannabis use: None Stimulant use: None Opiate use: None Prescription drug abuse: None - Inpatient Certification I certify that the inpatient services were ordered in accordance with Medicare regulations governing the order. This includes certification that hospital inpatient services are reasonable and necessary and in the case of services not specified as inpatient-only under 42 CFR 419.22(n), that they are appropriately provided as inpatient services in accordance to with the 2-midnight benchmark under 43 CFR 412.3(e) I certify that inpatient psychiatric hospital services are medically necessary. Evaluation and treatment and/or diagnostic testing are expected to improve the patient's condition. The patient needs on a daily basis, active treatment furnished directly by or requiring the supervision of inpatient psychiatric facility personnel. Review of Systems All other systems reviewed negative except as stated in HPI PMFSH - History History Provided By: Patient - Medical History Medical History: Medical History (Last Reviewed 08/14/18 @ 20:11 by JOVANNI Kohli) Psychiatric diagnosis - Surgical History Surgical History: Surgical History (Last Reviewed 08/14/18 @ 20:11 by JOVANNI Kohli) No history of previous surgery - Tobacco History Second Hand Smoke Exposure: No Tobacco Use In Past 30 Days: No Smoking Status: Never smoker Tobacco Type: Cigars - Alcohol History How Often Do You Have a Drink Containing Alcohol: Monthly or less - Substance Use History Substance History: Active Abuse - Travel History Recent Travel in the [place] Within the Last 8 Weeks: No Recent Travel Out of the Country Within the Last 8 Weeks: No - Immunization History Tetanus Immunization: <5 Years Hx Influenza Vaccine This Season: Yes Medications and Allergies Active Medications: Active Medications Acetaminophen (Tylenol) 650 mg PO Q4H PRN PRN Reason: Pain 1-5 or Temp >101F Al Hydrox/Mg Hydrox/Simethicone (Mag-Al Plus Susp Liq) 30 ml PO Q6H PRN PRN Reason: DYSPEPSIA Al Hydroxide/Mg Hydroxide (Milk Of Magnesia Liq) 30 ml PO Q12H PRN PRN Reason: Mild Constipation Diphenhydramine HCl (Benadryl) 50 mg PO HS PRN PRN Reason: INSOMNIA Last Admin: 08/14/18 22:22 Dose: 50 mg Diphenhydramine HCl (Benadryl Inj) 50 mg IM HS PRN PRN Reason: INSOMNIA Divalproex Sodium (Depakote Er) 1,500 mg PO HS SARAH Hydroxyzine HCl (Atarax) 50 mg PO Q6H PRN PRN Reason: ANXIETY Nicotine (Habitrol 21 Mg Patch.24 Hr) 1 patch T-DERMAL DAILY SARAH Last Admin: 08/15/18 08:21 Dose: Not Given Patch Removal (Remove Old Patch) 1 each T-DERMAL HS SARAH Risperidone (Risperdal) 1 mg PO HS SARAH Allergies Allergy/AdvReac Type Severity Reaction Status Date / Time No Known Allergies Allergy Verified 08/14/18 15:08 Results - Labs CBC & Chem 7: 08/14/18 15:04 08/15/18 06:03 Labs: Laboratory Results - last 24 hr 08/14/18 08/14/18 08/14/18 15:04 15:04 15:04 WBC 5.7 RBC 4.01 L Hgb 12.6 L Hct 36.5 L MCV 90.9 MCH 31.5 MCHC 34.6 RDW 16.3 Plt Count 267 MPV 7.3 Sodium 143 Potassium 4.1 Chloride 111 H Carbon Dioxide 24.8 Anion Gap 7 BUN 8 Creatinine 0.71 Estimated GFR Greater than 89 Random Glucose 81 Calcium 8.6 Total Bilirubin 0.3 AST 12 L ALT 26 Alkaline Phosphatase 79 Total Protein 7.5 Albumin 3.8 Triglycerides Cholesterol LDL Cholesterol, Calc HDL Cholesterol Cholesterol/HDL Ratio TSH 0.969 Urine Color Urine Clarity Urine pH Ur Specific [place] Urine Protein Urine Glucose (UA) Urine Ketones Urine Occult Blood Urine Nitrate Urine Bilirubin Urine Urobilinogen Ur Leukocyte Esterase Urine RBC Urine WBC Urine Mucus Micro UA Comment Ur Microscopic Review Urine Culture Comments Urine Opiates Screen Ur Barbiturates Screen Valproic Acid 50 Ur Amphetamines Screen U Benzodiazepines Scrn Urine Cocaine Screen U Cannabinoids Screen Serum Alcohol 16 H 08/14/18 08/14/18 08/15/18 16:05 16:05 06:03 WBC RBC Hgb Hct MCV MCH MCHC RDW Plt Count MPV Sodium 140 Potassium 3.8 Chloride 107 Carbon Dioxide 27.7 Anion Gap 5 BUN 7 Creatinine 0.67 Estimated GFR Greater than 89 Random Glucose 79 Calcium 8.8 Total Bilirubin AST ALT Alkaline Phosphatase Total Protein Albumin Triglycerides 38 L Cholesterol 84 L LDL Cholesterol, Calc 21 HDL Cholesterol 55.5 Cholesterol/HDL Ratio 1.51 TSH Urine Color Yellow Urine Clarity Clear Urine pH 8.0 Ur Specific [place] 1.017 Urine Protein Negative Urine Glucose (UA) Negative Urine Ketones Trace H Urine Occult Blood Negative Urine Nitrate Negative Urine Bilirubin Negative Urine Urobilinogen Less than 2 Ur Leukocyte Esterase Negative Urine RBC 1 Urine WBC Less than 1 Urine Mucus Few H Micro UA Comment Culture not ind Ur Microscopic Review Not Reportable Urine Culture Comments Culture not ind Urine Opiates Screen Neg Ur Barbiturates Screen Neg Valproic Acid Ur Amphetamines Screen Neg U Benzodiazepines Scrn Neg Urine Cocaine Screen Neg U Cannabinoids Screen Neg Serum Alcohol Exam Vital signs: Vital Signs 08/14/18 15:14 08/14/18 17:40 08/14/18 21:41 Temperature 97.9 F 98.2 F Pulse Rate 105 H 87 76 Respiratory Rate 18 18 18 Blood Pressure 131/71 132/75 139/85 Pulse Oximetry 98 100 100 08/14/18 22:30 08/15/18 05:38 Temperature 98.8 F 98.2 F Pulse Rate 86 73 Respiratory Rate 18 17 Blood Pressure 132/79 136/86 Pulse Oximetry 99 99 Intake & Output 08/14/18 08/15/18 08/15/18 18:59 06:59 18:59 Weight 121.563 kg 79 kg Other: Weight On Admission 79 kg Mental Status Examination Appearance: Appropriate Consciousness: Alert Orientation: x4 Motor Activity: Normal gait Speech: Unremarkable Language: Adequate Fund of Knowledge: Adequate Attention and Concentration: Easily distracted Memory: Unremarkable Mood: Manic Affect: Other (Dysphoric.) Thought Process & Associations: Disorganized (Mild as evidenced by slow response to questions and easily distracted) Thought Content: Other (Discharge focused and denying severity of his condition) Hallucination Type: None Delusion Type: None Suicidal Ideation: No Suicidal Plan: No Suicidal Intention: No Homicidal Ideation: No Homicidal Plan: No Homicidal Intention: No Insight: Poor Judgment: Impulsive Assessment and Plan - Assessment (1) Bipolar disorder, current episode mixed, severe, without psychotic features Code(s): F31.63 - Bipolar disorder, current episode mixed, severe, without psychotic features Status: Acute - Plan Plan: 1. Continue with admission to inpatient psychiatry at [facility]; involuntary/competent legal status. 2. Routine unit precautions. 3. Comfort medications ordered for as needed treatment of constipation, heartburn, diarrhea, and mild pain. 4. Hydroxyzine 50mg po q6H prn anxiety/insomnia. 5. Increase patient's Depakote ER to 1500 mg at bedtime for treatment of bipolar mixed manic episode. 6. Continue Risperdal at 1 mg at bedtime for adjunctive treatment of bipolar disorder with mixed lorna. 7. Patient will participate in the unit programming to include group therapies , milieu therapy and recreational therapies. 8. Second opinion for Dia act ordered. 9. Discharge planning: Patient will once again be returning to [facility] if they will take him back for discharge follow-up assessment once stabilized treatment for bipolar disorder. Patient's family have been closely involved with patient's care and the patient agrees with this plan. Estimated LOS: 7 days. Justification for Continued Inpatient Stay: Patient remains an elevated risk for harm to others as evidenced by his recent aggressive behaviors as a manifestation of his mixed lorna and therefore will require further inpatient stabilization and preparation of a safe discharge plan. Moving patient to a less restrictive environment at this time may result in decompensation.
[2018-08-15 16:04] LABS: Hemoglobin A1c 5.3 % (4.3-6.0)
[2018-08-15] MEDS: Divalproex 500 MG ER Tablet PO SCH (20:20)
--- NOTE | 2018-08-16 12:24 | P.PNPSY ---
Subjective Chief Complaint: "I jumped over the counter because it kept threatening to hospitalize me" Remarks: Patient seen for follow-up, chart reviewed, patient discussed with nursing staff ; we reviewed the patient's mood, thoughts, and behaviors from overnight and this morning. Nurse reports the patient had approximately 2 hours of sleep overnight. He is described as disruptive, confused, disorganized. Nursing has observed bizarre behaviors on the video such as him snorting brianna crackers, posturing and talking to himself. Patient was seen sitting in the day room before lunch acting appropriately and keeping to himself. Upon approach the patient smiles and says "I am doing great". He denies any somnolence despite his lack of sleep. He denies any suicidal or homicidal ideations. He denies any auditory or visual hallucinations. His affect is not congruent with stated mood as it is very flat. The patient was asked about his bizarre behavior such as snorting brianna crackers and he reports "it is just because I am so bored here I really want to go home." Patient was asked about his alcohol ingestion on the day of admission and he insists that he had one shot of Jewels before going to his appointment because he wanted to "just chill" and he adamantly denies that he is ever done something like that before. The patient perseverated on his desire to be discharged and continue his "if you do not think you should go home that is okay" but then he continued to insist that he should be able to go home. We discussed his decreased need for sleep and continued disorganized behavior and recommended that the Risperdal be changed to Zyprexa and he agreed and signed informed consents. Mental Status Examination Appearance: Appropriate Consciousness: Alert Orientation: x4 Motor Activity: Normal gait Speech: Unremarkable Language: Adequate Fund of Knowledge: Adequate Attention and Concentration: Easily distracted Memory: Unremarkable Mood: Manic Affect: Flat, Labile Thought Process & Associations: Disorganized (Mild as evidenced by slow response to questions and easily distracted) Thought Content: Other (Discharge focused and denying severity of his condition) Hallucination Type: None Delusion Type: None Suicidal Ideation: No Suicidal Plan: No Suicidal Intention: No Homicidal Ideation: No Homicidal Plan: No Homicidal Intention: No Insight: Poor Judgment: Poor Assessment and Plan - Assessment (1) Bipolar disorder, current episode mixed, severe, without psychotic features Code(s): F31.63 - Bipolar disorder, current episode mixed, severe, without psychotic features Status: Acute - Plan Plan: 08/15/2018: Initial plan 1. Continue with admission to inpatient psychiatry at [facility]; involuntary/competent legal status. 2. Routine unit precautions. 3. Comfort medications ordered for as needed treatment of constipation, heartburn, diarrhea, and mild pain. 4. Hydroxyzine 50mg po q6H prn anxiety/insomnia. 5. Increase patient's Depakote ER to 1500 mg at bedtime for treatment of bipolar mixed manic episode. 6. Continue Risperdal at 1 mg at bedtime for adjunctive treatment of bipolar disorder with mixed lorna. 7. Patient will participate in the unit programming to include group therapies , milieu therapy and recreational therapies. 8. Second opinion for Dia act ordered. 9. Discharge planning: Patient will once again be returning to [facility] if they will take him back for discharge follow-up assessment once stabilized treatment for bipolar disorder. Patient's family have been closely involved with patient's care and the patient agrees with this plan. Estimated LOS: 7 days. 08/16/2018: Unsatisfactory response to treatment; the patient's behavior is becoming increasingly disorganized and his decreased need for sleep continues to be severe. Patient's Depakote dose was just increased last night and will take at least 4 more days to reach steady state but I adjunctive treatment with a therapeutic dose of atypical antipsychotic is indicated. Continue inpatient observation and treatment, involuntary status but competent to make medical decisions and sign informed consents. Continue Depakote ER 1500 mg at bedtime. Discontinue Risperdal 1 mg at bedtime due to lack of efficacy or tolerability at higher doses. Start Zyprexa Zydis 20 mg at bedtime for adjunctive treatment of bipolar lorna with psychosis. Discharge planning: Patient will once again be returning to [facility] if they will take him back for discharge follow-up assessment once stabilized treatment for bipolar disorder. Patient's family have been closely involved with patient's care and the patient agrees with this plan. Justification for Continued Inpatient Stay: Patient remains an elevated risk for self-harm by self neglect and risk of harm to others as evidenced by his physical aggression prior to admission and therefore will require further inpatient stabilization and preparation of a safe discharge plan. Moving patient to a less restrictive environment at this time may result in decompensation.
[2018-08-16] MEDS: Divalproex 500 MG ER Tablet PO SCH (20:49)
[2018-08-16] MEDS: OLANZapine 20 MG Tab.Rapdis PO SCH (20:49)
--- NOTE | 2018-08-16 21:00 | P.CONPSY ---
Provisional Diagnosis Admission Date: August 14, 2018 21:02 Stanton I.: Bipolar disorder most recent episode mixed with psychotic features History of Present Illness Service: Psychiatry Consult date: 08/16/18 Requesting Physician: Hosea Lewis Reason for Consult: Second opinion Primary Care Provider: UNKNOWN History of Present Illness: Patient is a 22-year-old -[place] man, who carries a diagnosis of bipolar disorder, previous psychiatric admissions, brought in under Dia act after patient was noted to be aggressive at outpatient clinic which patient was admitted to the inpatient psychiatry for further evaluation and management. Patient seen today for second opinion. Patient was found participate in group activity, was able to engage in interview, seen with nurse. As per nursing report patient yesterday was yelling that they were ants on his bed noted to be bizarre. Patient states that he had gotten upset at the clinic because his mom was trying to admit him. He mentions having drank alcohol prior to go to the clinic because he "wanted to relax". He states that he is regretful of his actions and states that he felt the medications were not helping. He states that he used to use natural medications to help him but is compliant with treatment here. He reports no difficulty with sleep, stating his mood has been "excellent" and denies any auditory visual hallucinations, denies any SI or HI at this time. Review of Systems All other systems reviewed negative except as stated in HPI PMFSH - History History Provided By: Patient, Medical Record - Medical History Medical History: Medical History (Last Reviewed 08/14/18 @ 20:11 by JOVANNI Kohli) Psychiatric diagnosis - Surgical History Surgical History: Surgical History (Last Reviewed 08/14/18 @ 20:11 by JOVANNI Kohli) No history of previous surgery - Tobacco History Second Hand Smoke Exposure: No Tobacco Use In Past 30 Days: No Smoking Status: Never smoker Tobacco Type: Cigars - Alcohol History How Often Do You Have a Drink Containing Alcohol: Monthly or less - Substance Use History Substance History: Active Abuse - Travel History Recent Travel in the [place] Within the Last 8 Weeks: No Recent Travel Out of the Country Within the Last 8 Weeks: No - Immunization History Tetanus Immunization: <5 Years Hx Influenza Vaccine This Season: Yes Medications and Allergies Active Medications: Active Medications Acetaminophen (Tylenol) 650 mg PO Q4H PRN PRN Reason: Pain 1-5 or Temp >101F Al Hydrox/Mg Hydrox/Simethicone (Mag-Al Plus Susp Liq) 30 ml PO Q6H PRN PRN Reason: DYSPEPSIA Al Hydroxide/Mg Hydroxide (Milk Of Magnesia Liq) 30 ml PO Q12H PRN PRN Reason: Mild Constipation Diphenhydramine HCl (Benadryl) 50 mg PO HS PRN PRN Reason: INSOMNIA Last Admin: 08/14/18 22:22 Dose: 50 mg Diphenhydramine HCl (Benadryl Inj) 50 mg IM HS PRN PRN Reason: INSOMNIA Divalproex Sodium (Depakote Er) 1,500 mg PO HS SARAH Last Admin: 08/15/18 20:20 Dose: 1,500 mg Hydroxyzine HCl (Atarax) 50 mg PO Q6H PRN PRN Reason: ANXIETY Last Admin: 08/16/18 13:30 Dose: 50 mg Nicotine (Habitrol 21 Mg Patch.24 Hr) 1 patch T-DERMAL DAILY [facility] Last Admin: 08/16/18 08:03 Dose: Not Given Olanzapine (Zyprexa Zydis Odt) 20 mg PO HS SARAH Patch Removal (Remove Old Patch) 1 each T-DERMAL HS [facility] Last Admin: 08/15/18 20:21 Dose: Not Given Allergies Allergy/AdvReac Type Severity Reaction Status Date / Time No Known Allergies Allergy Verified 08/14/18 15:08 Exam Vital signs: Vital Signs 08/16/18 06:33 08/16/18 15:18 Temperature 97.5 F L 98.8 F Pulse Rate 77 101 H Respiratory Rate 18 18 Blood Pressure 100/56 L 125/72 Pulse Oximetry 98 96 Narrative: Patient not noted to be in acute distress, noted with petechial hemorrhage of sclera bilaterally no gross motor abnormalities, no signs of tremor or EPS, no psychomotor agitation or retardation. - Constitutional no acute distress, cooperative Mental Status Examination Appearance: Appropriate Consciousness: Alert Orientation: x4 Motor Activity: Normal gait Speech: Unremarkable Language: Adequate Fund of Knowledge: Adequate Attention and Concentration: Easily distracted Memory: Unremarkable Mood: Manic Affect: Flat Thought Process & Associations: Disorganized, Other (concrete) Thought Content: Other (minimizing symptoms) Hallucination Type: None Delusion Type: None Suicidal Ideation: No Suicidal Plan: No Suicidal Intention: No Homicidal Ideation: No Homicidal Plan: No Homicidal Intention: No Insight: Poor Judgment: Poor Assessment and Plan - Assessment (1) Bipolar disorder, current episode mixed, severe, without psychotic features Code(s): F31.63 - Bipolar disorder, current episode mixed, severe, without psychotic features Status: Acute - Plan Plan: I have seen and examined this patient, reviewed the documentation, and I agree and concur with Dr. Lewis assessment and plan. Patient with recent aggressive behavior, noted with bizarre behavior as oberved by staff, appears to minimize recent symptoms and denying any psychotic symptoms yet incongruent with behavior observed. I have completed second opinion for the petition for involuntary hospitalization. Consult appreciated. Justification for Continued Inpatient Stay: At risk of further decompensation at lower level care.
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
[2018-08-17] MEDS ORDERED: Haloperidol Inj 5 MG/ML Ampul ONE (13:15)
[2018-08-17] MEDS ORDERED: Haloperidol Inj 5 MG/ML Ampul IM ONE (13:18)
[2018-08-17] MEDS: Artificial Tears Opth Drops 15 ML Bottle EACH EYE SCH ×3 (13:25→20:46)
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
[2018-08-17] MEDS: OLANZapine 20 MG Tab.Rapdis PO SCH (20:46)
[2018-08-17] MEDS: Divalproex 500 MG ER Tablet PO SCH (20:46)
[2018-08-18] MEDS: Artificial Tears Opth Drops 15 ML Bottle EACH EYE SCH ×4 (08:13→20:50)
--- NOTE | 2018-08-18 10:38 | P.PNPSY ---
Subjective Chief Complaint: Follow-up for treatment of lorna with psychosis Remarks: Patient seen for follow-up, chart reviewed, patient discussed with nursing staff ; we reviewed the patient's mood, thoughts, and behaviors from overnight and this morning. Nurse reports the patient slept 6 hours overnight which is a definite improvement. The patient spent most of last evening as well as this morning in bed asleep although he did get up for meals and this was following his emergency treatment order in the evening for his aggressive behaviors. Patient was seen at bedside after breakfast where he was sleeping but easy to awaken. He was pleasant cooperative with interview and continues to minimize his symptoms. Denies any SI or HI. He denies any auditory hallucinations. He reports feeling safe on the unit and continues to express an elevated mood state , "I am doing great this places great." Patient's affect is not congruent as it is flat. The patient was asked about his behaviors yesterday and per his usual he reports "I am just a young rosio trying to have a good time and apparently whenever I do that it breaks the rules." Patient acknowledges receiving a shot of medication to help him calm down but he insists that it occurred just an hour ago when it had actually happened 17 hours ago. After awakening the patient for this interview he got out of his room and went into the dayroom where he proceeded to do some stretching and jumping jacks and was talking to himself perhaps singing to himself as he exercised. The display was bizarre and somewhat disinhibited but not a threat to himself or others. Review of Systems All other systems reviewed negative except as stated in HPI Mental Status Examination Appearance: Disheveled Consciousness: Alert Orientation: Person, Place, Date/Time (He knew it was 2018 but not the specific date in August), Situation Motor Activity: Normal gait Speech: Unremarkable (And improved since yesterday) Language: Adequate Fund of Knowledge: Adequate Attention and Concentration: Easily distracted Memory: Impaired (Difficulty recalling details over the last few days) Mood: Manic Affect: Flat Thought Process & Associations: Disorganized, Tangential, Other (concrete) Thought Content: Other (minimizing symptoms) Hallucination Type: None (Appears to be responding to internal stimuli) Delusion Type: None Suicidal Ideation: No Suicidal Plan: No Suicidal Intention: No Homicidal Ideation: No Homicidal Plan: No Homicidal Intention: No Insight: Poor Judgment: Poor Assessment and Plan - Assessment (1) Bipolar disorder, current episode mixed, severe, without psychotic features Code(s): F31.63 - Bipolar disorder, current episode mixed, severe, without psychotic features Status: Acute - Plan Plan: 08/15/2018: Initial plan 1. Continue with admission to inpatient psychiatry at [facility]; involuntary/competent legal status. 2. Routine unit precautions. 3. Comfort medications ordered for as needed treatment of constipation, heartburn, diarrhea, and mild pain. 4. Hydroxyzine 50mg po q6H prn anxiety/insomnia. 5. Increase patient's Depakote ER to 1500 mg at bedtime for treatment of bipolar mixed manic episode. 6. Continue Risperdal at 1 mg at bedtime for adjunctive treatment of bipolar disorder with mixed lorna. 7. Patient will participate in the unit programming to include group therapies , milieu therapy and recreational therapies. 8. Second opinion for Dia act ordered. 9. Discharge planning: Patient will once again be returning to [facility] if they will take him back for discharge follow-up assessment once stabilized treatment for bipolar disorder. Patient's family have been closely involved with patient's care and the patient agrees with this plan. Estimated LOS: 7 days. 08/16/2018: Unsatisfactory response to treatment; the patient's behavior is becoming increasingly disorganized and his decreased need for sleep continues to be severe. Patient's Depakote dose was just increased last night and will take at least 4 more days to reach steady state but I adjunctive treatment with a therapeutic dose of atypical antipsychotic is indicated. Continue inpatient observation and treatment, involuntary status but competent to make medical decisions and sign informed consents. Continue Depakote ER 1500 mg at bedtime. Discontinue Risperdal 1 mg at bedtime due to lack of efficacy or tolerability at higher doses. Start Zyprexa Zydis 20 mg at bedtime for adjunctive treatment of bipolar lorna with psychosis. Discharge planning: Patient will once again be returning to [facility] if they will take him back for discharge follow-up assessment once stabilized treatment for bipolar disorder. Patient's family have been closely involved with patient's care and the patient agrees with this plan. 08/17/2018: Unsatisfactory response to treatment; the patient did get better sleep last night with the replacement of Risperdal with Zyprexa however he continues to behave in the way suggestive of psychosis with disorganized behaviors and responding to internal stimuli and now with recurrent aggressive behaviors that have required emergency treatment orders. The patient's Depakote still requires more time to reach steady state and he was just started on the Zyprexa 20 mg therefore treatment will remain unchanged with the expectation that his psychosis and lorna will improve with current treatments and more time. 08/18/2018: Unsatisfactory response to treatment but he is appearing less disorganized and less agitated today; this is day of treatment #3 for an increase of his Depakote to 1500 mg at bedtime and day of treatment #2 since replacing his Risperdal with Zyprexa 20 mg at bedtime. Patient did sleep better last night however the evening ETO certainly contributed. The patient is definitely more appropriate in conversation today but he demonstrated his continued disinhibited and bizarre behavior in the day room which is consistent with his overall disorganized thoughts and behaviors with flat affect and poor insightmost likely due to primary psychotic disorder versus bipolar disorder with psychosis. Continue inpatient observation and treatment, involuntary status. Continue current medications unchanged as they will require more time to reach therapeutic levels. Discharge planning: Patient will once again be returning to [facility] if they will take him back for discharge follow-up assessment once stabilized treatment for bipolar disorder. Patient's family have been closely involved with patient's care and the patient agrees with this plan. Justification for Continued Inpatient Stay: Patient remains an elevated risk for self-harm by self neglect and a risk of harm to others as evidenced by his continued aggressive behaviors and therefore will require further inpatient stabilization and preparation of a safe discharge plan. Moving patient to a less restrictive environment at this time may result in decompensation.
--- NOTE | 2018-08-18 13:43 | P.TTN ---
- Patient Problems Problems: 1. Discharge planning 2. Medication compliance 3. Knowledge deficit 4. Lack of coping skills - Progress Toward Goals Provider Present: Other (Dr. Fregoso patient is psychotic, patient is decompensating, Dr. Fregoso is titrating medications, patient remains for further stabilization.) Psychiatric Counselors Present: Asa Bishop Jr., [facility] (Met with patient to discuss discharge plan. Patient reports he will return to his residence where he is domiciled with his mother, father and 2 siblings.) Group Spec/RT/OT/BENDER Present: YULIA Cook (Patient does not attend groups at this time.) - Documentation Teaching Recipient: Patient
[2018-08-18] MEDS: Divalproex 500 MG ER Tablet PO SCH (20:50)
[2018-08-18] MEDS: OLANZapine 20 MG Tab.Rapdis PO SCH (20:50)
[2018-08-19] MEDS: Artificial Tears Opth Drops 15 ML Bottle EACH EYE SCH ×3 (09:16→21:22)
--- NOTE | 2018-08-19 15:54 | P.PNPSY ---
Subjective Chief Complaint: Follow-up for treatment of lorna with psychosis Remarks: Patient was seen and case discussed with nursing. Patient is perseverative on discharge and has a hard time understanding why he cannot leave right now despite psychoeducation. He is behaving well on the unit and is well controlled. There is some psychomotor retardation. No agitation was noted. No ETO's were needed. Patient denies suicidal or homicidal ideation intent. Tolerating medications well Review of Systems All other systems reviewed negative except as stated in HPI Mental Status Examination Appearance: Disheveled Consciousness: Alert Orientation: Person, Place, Date/Time (He knew it was 2018 but not the specific date in August), Situation Motor Activity: Normal gait Speech: Unremarkable (And improved since yesterday) Language: Adequate Fund of Knowledge: Adequate Attention and Concentration: Easily distracted Memory: Impaired (Difficulty recalling details over the last few days) Mood: Oppositional Affect: Flat Thought Process & Associations: Disorganized, Tangential, Other (concrete) Thought Content: Other (minimizing symptoms) Hallucination Type: None (Appears to be responding to internal stimuli) Delusion Type: None Suicidal Ideation: No Suicidal Plan: No Suicidal Intention: No Homicidal Ideation: No Homicidal Plan: No Homicidal Intention: No Insight: Poor Judgment: Poor Assessment and Plan - Assessment (1) Bipolar disorder, current episode mixed, severe, without psychotic features Code(s): F31.63 - Bipolar disorder, current episode mixed, severe, without psychotic features Status: Acute - Plan Plan: Continue current treatment plan Justification for Continued Inpatient Stay: Patient would decompensate in a less restrictive setting
[2018-08-19] MEDS: OLANZapine 20 MG Tab.Rapdis PO SCH (21:22)
[2018-08-19] MEDS: Divalproex 500 MG ER Tablet PO SCH (21:22)
[2018-08-20] MEDS: Artificial Tears Opth Drops 15 ML Bottle EACH EYE SCH ×4 (08:45→21:28)
--- NOTE | 2018-08-20 13:00 | P.PNPSY ---
Subjective Chief Complaint: Follow-up for treatment of lorna with psychosis Remarks: Reviewed electronic medical record and discussed with nursing staff. Rounded with LAURA Taveras. Patient is his room , lying in his bed awake. Denies auditory and visual hallucinations, but appears internally preoccupied. He is cooperative with no behavioral concerns. He states that he is sleeping well, but his diet is poor. He is asking for peaches. He is medication compliant. Denies SI/HI. Last Valporic Acid on 08/08/18 was 50. Review of Systems All other systems reviewed negative except as stated in HPI Mental Status Examination Appearance: Disheveled Consciousness: Alert Orientation: Person, Place, Date/Time (He knew it was 2018 but not the specific date in August), Situation Motor Activity: Normal gait Speech: Unremarkable (And improved since yesterday) Language: Adequate Fund of Knowledge: Adequate Attention and Concentration: Easily distracted Memory: Impaired (Difficulty recalling details over the last few days) Mood: Appropriate Affect: Flat Thought Process & Associations: Disorganized, Tangential, Other (concrete) Thought Content: Other (minimizing symptoms) Hallucination Type: None (Appears to be responding to internal stimuli) Delusion Type: None Suicidal Ideation: No Suicidal Plan: No Suicidal Intention: No Homicidal Ideation: No Homicidal Plan: No Homicidal Intention: No Insight: Poor Judgment: Poor Assessment and Plan - Assessment (1) Bipolar disorder, current episode mixed, severe, without psychotic features Code(s): F31.63 - Bipolar disorder, current episode mixed, severe, without psychotic features Status: Acute (2) Subconjunctival hemorrhage of both eyes Code(s): H11.33 - Conjunctival hemorrhage, bilateral Status: Acute - Plan Plan: Continue current treatment plan Justification for Continued Inpatient Stay: Moving patient to a less restrictive environment may result in his decompensation.
[2018-08-20] MEDS: Divalproex 500 MG ER Tablet PO SCH (21:27)
[2018-08-20] MEDS: OLANZapine 20 MG Tab.Rapdis PO SCH (21:27)
[2018-08-21] MEDS: Artificial Tears Opth Drops 15 ML Bottle EACH EYE SCH ×4 (08:26→20:16)
--- NOTE | 2018-08-21 15:02 | P.PNPSY ---
Subjective Chief Complaint: Follow-up for treatment of lorna with psychosis Remarks: Patient seen for follow-up, chart reviewed, patient discussed with nursing staff ; we reviewed the patient's mood, thoughts, and behaviors from overnight and this morning. Nurse reports the patient's sleep had improved over the weekend and he got 7 hours overnight. Staff reports indicated that he was acting bizarrely and seemed to be responding to internal stimulation at times but had no aggressive behaviors over the weekend and was cooperative with treatment. There was a episode in which the patient demanded discharge on Tuesday and patient's mother reportedly was encouraged him to be discharged the patient started to bang his head when he was not allowed to discharge but he was able to calm down without an ETO. Patient day on Tuesday was uneventful and then he was seen this morning, Tuesday, by the provider while he was attending recreational therapy. The patient was observed to be sitting outside by himself and singing and talking to himself. There is no abnormal or bizarre movements observed. The patient was pleasant with provider upon approach and he reported that he was feeling good and has been talking with his mother who was supportive of him coming home soon. The patient was informed that his mother would be reached to see about her opinions which seem to match the documentation from the weekend coverage that he was doing better and we can then start to discuss the discharge plan. Patient's mother was contacted she denies that she had demanded his release over the weekend and she realizes that he continues to be manipulative and insisting discharge and although she would like him to finish his recovery at home as soon as possible she recognizes that he continues to behave in an abnormal behavior compared to his baseline and she remains concerned about whether he will adhere to his medications. We agreed upon a family meeting tomorrow at 1400 in order for the patient and his family and his treatment team to discuss his disposition and discharge plan and ordered to ensure safety and adherence. The patient was informed of this plan and he became acutely agitated. He demanded to be released and raised his voice and slammed doors and slammed the phone and's even attempted to kick out the window in his room. The patient was able to be redirected and calm and through support and he did not require an ETO. Mental Status Examination Appearance: Appropriate Consciousness: Alert Orientation: Person, Place, Date/Time (He knew it was 2019 but not the specific date in August), Situation Motor Activity: Normal gait Speech: Unremarkable (And improved since yesterday) Language: Adequate Fund of Knowledge: Adequate Attention and Concentration: Easily distracted Memory: Impaired (Difficulty recalling details over the last few days) Mood: Irritable Affect: Flat (Minimal reactivity when the patient was stating intense anger) Thought Process & Associations: Disorganized, Tangential, Other (concrete) Thought Content: Other (minimizing symptoms) Hallucination Type: None (Appears to be responding to internal stimuli) Delusion Type: None Suicidal Ideation: No Suicidal Plan: No Suicidal Intention: No Homicidal Ideation: No Homicidal Plan: No Homicidal Intention: No Insight: Poor Judgment: Poor Assessment and Plan - Assessment (1) Bipolar disorder, current episode mixed, severe, without psychotic features Code(s): F31.63 - Bipolar disorder, current episode mixed, severe, without psychotic features Status: Acute - Plan Plan: 08/15/2018: Initial plan 1. Continue with admission to inpatient psychiatry at [facility]; involuntary/competent legal status. 2. Routine unit precautions. 3. Comfort medications ordered for as needed treatment of constipation, heartburn, diarrhea, and mild pain. 4. Hydroxyzine 50mg po q6H prn anxiety/insomnia. 5. Increase patient's Depakote ER to 1500 mg at bedtime for treatment of bipolar mixed manic episode. 6. Continue Risperdal at 1 mg at bedtime for adjunctive treatment of bipolar disorder with mixed lorna. 7. Patient will participate in the unit programming to include group therapies , milieu therapy and recreational therapies. 8. Second opinion for Dia act ordered. 9. Discharge planning: Patient will once again be returning to [facility] if they will take him back for discharge follow-up assessment once stabilized treatment for bipolar disorder. Patient's family have been closely involved with patient's care and the patient agrees with this plan. Estimated LOS: 7 days. 08/16/2018: Unsatisfactory response to treatment; the patient's behavior is becoming increasingly disorganized and his decreased need for sleep continues to be severe. Patient's Depakote dose was just increased last night and will take at least 4 more days to reach steady state but I adjunctive treatment with a therapeutic dose of atypical antipsychotic is indicated. Continue inpatient observation and treatment, involuntary status but competent to make medical decisions and sign informed consents. Continue Depakote ER 1500 mg at bedtime. Discontinue Risperdal 1 mg at bedtime due to lack of efficacy or tolerability at higher doses. Start Zyprexa Zydis 20 mg at bedtime for adjunctive treatment of bipolar lorna with psychosis. Discharge planning: Patient will once again be returning to [facility] if they will take him back for discharge follow-up assessment once stabilized treatment for bipolar disorder. Patient's family have been closely involved with patient's care and the patient agrees with this plan. 08/17/2018: Unsatisfactory response to treatment; the patient did get better sleep last night with the replacement of Risperdal with Zyprexa however he continues to behave in the way suggestive of psychosis with disorganized behaviors and responding to internal stimuli and now with recurrent aggressive behaviors that have required emergency treatment orders. The patient's Depakote still requires more time to reach steady state and he was just started on the Zyprexa 20 mg therefore treatment will remain unchanged with the expectation that his psychosis and lorna will improve with current treatments and more time. 08/18/2018: Unsatisfactory response to treatment but he is appearing less disorganized and less agitated today; this is day of treatment #3 for an increase of his Depakote to 1500 mg at bedtime and day of treatment #2 since replacing his Risperdal with Zyprexa 20 mg at bedtime. Patient did sleep better last night however the evening ETO certainly contributed. The patient is definitely more appropriate in conversation today but he demonstrated his continued disinhibited and bizarre behavior in the day room which is consistent with his overall disorganized thoughts and behaviors with flat affect and poor insightmost likely due to primary psychotic disorder versus bipolar disorder with psychosis. Continue inpatient observation and treatment, involuntary status. Continue current medications unchanged as they will require more time to reach therapeutic levels. Discharge planning: Patient will once again be returning to [facility] if they will take him back for discharge follow-up assessment once stabilized treatment for bipolar disorder. Patient's family have been closely involved with patient's care and the patient agrees with this plan. Justification for Continued Inpatient Stay: Patient remains an elevated risk for self-harm by self neglect and a risk of harm to others as evidenced by his continued aggressive behaviors and therefore will require further inpatient stabilization and preparation of a safe discharge plan. Moving patient to a less restrictive environment at this time may result in decompensation. 08/21/2018: Fair response to treatment; the patient had been more cooperative over the weekend and and his sleep was definitely normalizing but he continued to demonstrate bizarre behaviors through his abnormal movements and continued talking to himself. The patient had not had any aggressive behaviors or need for ETO's of the weekend therefore discharged back to his home was to be considered but the patient became insistent on discharge today and when told no he demonstrated his lack of frustration tolerance and his willingness to use physical aggression and threats as a way to get his needs met. Continue inpatient observations and treatment under involuntary status. Continue current medications unchanged they have shown to be effective. Family meeting planned for tomorrow at 1400 in order to assess whether patient can interact with family appropriately and responded appropriately to their support and direction. Anticipate discharge later this week if the patient continues to improve with treatment. Justification for Continued Inpatient Stay: Patient remains an elevated risk for self-harm by self neglect as the patient is threatening to starve himself to and is also risk of harming others as he routinely becomes verbally aggressive as well as posturing and ways that indicate threat towards others and therefore he will require further inpatient stabilization and preparation of a safe discharge plan. Moving patient to a less restrictive environment at this time may result in decompensation.
[2018-08-21] MEDS: Divalproex 500 MG ER Tablet PO SCH (20:15)
[2018-08-21] MEDS: OLANZapine 20 MG Tab.Rapdis PO SCH (20:15)
[2018-08-22] MEDS: Artificial Tears Opth Drops 15 ML Bottle EACH EYE SCH ×2 (08:15→13:10)
--- NOTE | 2018-08-22 10:27 | P.TTN ---
- Patient Problems Problems: 1. Discharge planning 2. Medication compliance 3. Knowledge deficit 4. Lack of coping skills - Progress Toward Goals Provider Present: Other (Dr. Fregoso will cancel the family meeting today, patient needs to remain for further stabilization. Dr. Lewis is titrating medications.) Psychiatric Counselors Present: Asa Bishop Jr., [facility] (Patient remains psychotic and appears to be responding to internal stimuli intermittently throughout the day. Patient will return home to his parents house where he is domiciled with his mother, father, and 2 siblings upon discharge.) Group Spec/RT/OT/BENDER Present: YULIA Cook (Patient does attend groups and is redirectable this time.) - Documentation Teaching Recipient: Patient
--- NOTE | 2018-08-22 13:28 | P.DSPSY ---
Psychiatry Discharge Summary Inpatient Psychiatric care?: Yes Advance Directives: No Mental Health Advance Directive: Yes Health Care Proxy: Unknown - Admission Admission Date: August 14, 2018 21:02 - Admission Diagnosis (1) Bipolar disorder, current episode mixed, severe, without psychotic features Code(s): F31.63 - Bipolar disorder, current episode mixed, severe, without psychotic features (2) Acute psychosis Code(s): F23 - Brief psychotic disorder Brief History: Patient is a 22-year-old male who was brought to [facility] ER law enforcement officers with a [place] PERL act order submitted by the patient's outpatient mental health provider. According to the Dia act report, the patient had presented to the [facility] for his discharge follow -up appointment on Tuesday and before even being seen he became agitated and threatening towards clinic staff and tried to climb over the counter to get into the administrative area threatening to harm staff a total of 3 times. The patient then reportedly left the clinic and the provider went to discuss his behaviors and he again threatened to harm the provider. Since the patient's arrival to [place], he has been demonstrating labile affect (dysphoric and isolative behavior contrasting with euphoric affect and behaviors such as dancing on the unit) hyperactive behavior and lack of insight into his condition. The patient denies that he was intoxicated on alcohol at the time of his appointment however there was positive blood alcohol level on his admission to the ER. He blames the altercation at the clinic with clinic staff as well as his mother threatening him with hospitalization. The patient denies that he threatened to harm anyone. The patient reports that he has been adherent to his discharge medications which include Risperdal 2 mg at bedtime and Depakote ER 1000 mg at bedtime and this was corroborated by a Depakote level in the ER which was 50. Patient does complain of nausea and excess sedation which he believes is from the Risperdal and would not sign informed consents for the 2 mg dose but would agree to a lowered 1 mg dose of Risperdal and an increase of the Depakote to 1500 mg at bedtime when it was explained to him that his blood results indicated he was on the low end of therapeutic range. As for his mood, the patient reports "I feel great" which is not congruent with his affect which appears dysphoric. He insists that he is getting up to 5 hours of sleep at night and that is enough. He does admit to increased energy and increased psychomotor activity but denies any suicidal ideations or homicidal ideations. As for psychosis, the patient denies any active auditory or visual hallucinations. The patient does make false statements but it is not clear whether these are delusional or manifestation of his denial and lack of insight. Past psychiatric history: Past Diagnoses: Brief psychotic disorder diagnosed on 2 previous admissions in July 2018. Hospitalizations: Two previous admissions from 21 July - 25 July 2018 at [place], and 02 August - 08 Aug 2018. Suicidal behavior: The patient denies and the family denies. Violent behavior: The patient reportedly was combative with family prior to his July hospitalizations and became aggressive and threatening with outpatient MH provider on 08/14/18. Past psychotropic medication trials: Latuda was started on initial admission but unaffordable and changed to Risperdal, and Depakote added on last admission due to signs and symptoms of mixed lorna. Outpatient MH treatment: Referred to [facility] for discharge follow-up appointment on 08/14/18 Substance Use Treatment: None Abuse/assault history: None Family psychiatric history: None Psychosocial history: Patient was born and raised in [facility] [place] [facility]. Intact family with one older sister. 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 The patient reports that he chose to work instead of going to college because he needed to support his family. 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 Patient currently lives with his parents. Patient admits that he has no physical friends but has many online friends. Patient remains mostly isolated to the's home with his family but this has been consistent with his personality according to the mother. As for legal history, there is been no arrests. Substance Use history: Tobacco use: None Alcohol use: None, but BAL=15 on admission to ED 08/14/18 Cannabis use: None Stimulant use: None Opiate use: None Prescription drug abuse: None Tobacco Use In Past 30 Days: No How Often Do You Have a Drink Containing Alcohol: Monthly or less Hospital Course: 08/15/2018: Initial plan 1. Continue with admission to inpatient psychiatry at [facility]; involuntary/competent legal status. 2. Routine unit precautions. 3. Comfort medications ordered for as needed treatment of constipation, heartburn, diarrhea, and mild pain. 4. Hydroxyzine 50mg po q6H prn anxiety/insomnia. 5. Increase patient's Depakote ER to 1500 mg at bedtime for treatment of bipolar mixed manic episode. 6. Continue Risperdal at 1 mg at bedtime for adjunctive treatment of bipolar disorder with mixed lorna. 7. Patient will participate in the unit programming to include group therapies , milieu therapy and recreational therapies. 8. Second opinion for Dia act ordered. 9. Discharge planning: Patient will once again be returning to [facility] if they will take him back for discharge follow-up assessment once stabilized treatment for bipolar disorder. Patient's family have been closely involved with patient's care and the patient agrees with this plan. Estimated LOS: 7 days. 08/16/2018: Unsatisfactory response to treatment; the patient's behavior is becoming increasingly disorganized and his decreased need for sleep continues to be severe. Patient's Depakote dose was just increased last night and will take at least 4 more days to reach steady state but I adjunctive treatment with a therapeutic dose of atypical antipsychotic is indicated. Continue inpatient observation and treatment, involuntary status but competent to make medical decisions and sign informed consents. Continue Depakote ER 1500 mg at bedtime. Discontinue Risperdal 1 mg at bedtime due to lack of efficacy or tolerability at higher doses. Start Zyprexa Zydis 20 mg at bedtime for adjunctive treatment of bipolar lorna with psychosis. Discharge planning: Patient will once again be returning to [facility] if they will take him back for discharge follow-up assessment once stabilized treatment for bipolar disorder. Patient's family have been closely involved with patient's care and the patient agrees with this plan. 08/17/2018: Unsatisfactory response to treatment; the patient did get better sleep last night with the replacement of Risperdal with Zyprexa however he continues to behave in the way suggestive of psychosis with disorganized behaviors and responding to internal stimuli and now with recurrent aggressive behaviors that have required emergency treatment orders. The patient's Depakote still requires more time to reach steady state and he was just started on the Zyprexa 20 mg therefore treatment will remain unchanged with the expectation that his psychosis and lorna will improve with current treatments and more time. 08/18/2018: Unsatisfactory response to treatment but he is appearing less disorganized and less agitated today; this is day of treatment #3 for an increase of his Depakote to 1500 mg at bedtime and day of treatment #2 since replacing his Risperdal with Zyprexa 20 mg at bedtime. Patient did sleep better last night however the evening ETO certainly contributed. The patient is definitely more appropriate in conversation today but he demonstrated his continued disinhibited and bizarre behavior in the day room which is consistent with his overall disorganized thoughts and behaviors with flat affect and poor insightmost likely due to primary psychotic disorder versus bipolar disorder with psychosis. Continue inpatient observation and treatment, involuntary status. Continue current medications unchanged as they will require more time to reach therapeutic levels. Discharge planning: Patient will once again be returning to [facility] if they will take him back for discharge follow-up assessment once stabilized treatment for bipolar disorder. Patient's family have been closely involved with patient's care and the patient agrees with this plan. Justification for Continued Inpatient Stay: Patient remains an elevated risk for self-harm by self neglect and a risk of harm to others as evidenced by his continued aggressive behaviors and therefore will require further inpatient stabilization and preparation of a safe discharge plan. Moving patient to a less restrictive environment at this time may result in decompensation. 08/21/2018: Fair response to treatment; the patient had been more cooperative over the weekend and and his sleep was definitely normalizing but he continued to demonstrate bizarre behaviors through his abnormal movements and continued talking to himself. The patient had not had any aggressive behaviors or need for ETO's of the weekend therefore discharged back to his home was to be considered but the patient became insistent on discharge today and when told no he demonstrated his lack of frustration tolerance and his willingness to use physical aggression and threats as a way to get his needs met. Continue inpatient observations and treatment under involuntary status. Continue current medications unchanged they have shown to be effective. Family meeting planned for tomorrow at 1400 in order to assess whether patient can interact with family appropriately and responded appropriately to their support and direction. Anticipate discharge later this week if the patient continues to improve with treatment. 08/22/2018: Nurse reports the patient did not sleep well overnight getting only 4 hours of solid sleep and he continued to visit the bathroom often and could be heard talking him to himself and sometimes cursing at himself while in the bathroom. The patient remained redirectable and did not require an ETO. There is no indication that he tried to harm himself or others. Patient was seen and examined on the unit today by psychiatry and also visited by counselor. Patient was calm and cooperative with provider and expressed his belief that he will be able to succeed with outpatient care. The patient reportedly did shout out while in the bathroom again this afternoon but again no physical threatening behavior and patient continues to comply with medications and meals. The patient is reporting that the psychotropic medications remained well tolerated. The patient's mother was contacted today to discuss the patient 's behavior yesterday when told he would not be going home. Patient's mother and father were advised that the patient remains a high risk for acting out if he does not get his way at home and therefore it is recommended that he continue his inpatient psychiatric treatment. The patient's mother and father expressed disagreement with this recommendation and insisted that they wanted to give him some the chance to come home and continue his recovery. Patient's mother insists that the patient had actually been adherent with his medication after last discharge but she had stopped the Risperdal because she felt like it was causing him nausea. Patient's mother intends to get his medications filled on day of discharge and will ensure that he is compliant and ensure that he adheres to psychiatric follow-up. There was an unsatisfactory response to inpatient treatment plan noted by nursing and provider observations; the patient behaviors remain disorganized and he appears to be responding to internal stimuli. However, the patient has been more redirectable over the last 4 days and has not required emergency treatment orders and has not tried to harm himself or others therefore a case for imminent risk of harm to self or others cannot be supported. The patient's family are willing to provide a less restrictive environment for his recovery and have expressed an understanding of the risks and the need for continued psychiatric treatment and thet agreed to return the patient to the ER or hospital or call 911 should his condition worsen. Psychiatric follow-up as arranged by counselor. I have counseled the patient to abstain from substances of abuse including alcohol and cannabis and have counseled patient to return to the psychiatric emergency room for any concerning symptoms as part of a general safety plan. Discharge medications include Depakote ER 500 mg take 3 by mouth every night at bedtime #21 refill 0, Zyprexa 20 mg take 1 at bedtime #7 refill 0, hydroxyzine 50 mg take 1 by mouth every 8 hours as needed for anxiety #30 refills 0. - Discharge Discharge Date: 08/22/18 - Discharge Diagnosis (1) Bipolar affective, mixed, sev w/ psych Code(s): F31.64 - Bipolar disorder, current episode mixed, severe, with psychotic features Status: Suspected Discharge Disposition: Home - Discharge Instructions Discharge Diet: Regular Diet - Discharge Time > 30 minutes Mental Status Examination Appearance: Appropriate Consciousness: Alert Orientation: Person, Place, Date/Time (He knew it was 2018 but not the specific date in August), Situation Motor Activity: Normal gait Speech: Unremarkable (And improved since yesterday) Language: Adequate Fund of Knowledge: Adequate Attention and Concentration: Easily distracted Memory: Impaired (Difficulty recalling details over the last few days) Mood: Good Affect: Flat (Not congruent with stated mood ) Thought Process & Associations: Intact, Logical, Goal directed, Disorganized ( Seems to be attending to internal stimuli at times) Thought Content: Appropriate Hallucination Type: None (Appears to be responding to internal stimuli) Delusion Type: None Suicidal Ideation: No Suicidal Plan: No Suicidal Intention: No Homicidal Ideation: No Homicidal Plan: No Homicidal Intention: No Insight: Poor Judgment: Poor Discharge/Advance Care Plan - Results Vital Signs: Last Vital Signs Temp 97.4 F L 08/22/18 05:52 Pulse 88 08/22/18 05:52 Resp 18 08/22/18 05:52 BP 106/55 L 08/22/18 05:52 Pulse Ox 98 08/22/18 05:52 Lab Results: Laboratory Results Hemoglobin A1c 5.3 % (4.3-6.0) 08/15/18 06:03 Triglycerides 38 mg/dL (42-150) L 08/15/18 06:03 Cholesterol 84 mg/dL (120-200) L 08/15/18 06:03 LDL Cholesterol, Calc 21 mg/dL (0-99) 08/15/18 06:03 HDL Cholesterol 55.5 mg/dL (40.0-60.0) 08/15/18 06:03 TSH 0.969 uIU/mL (0.358-3.740) 08/14/18 15:04 Urine Culture Comments Culture not ind 08/14/18 16:05 Valproic Acid 50 mcg/mL (50-100) 08/14/18 15:04 Summary of Procedures: None ordered Pending Results: None - Medications Number of antipsychotic medications at discharge: 1 - Discharge Care Plan Goals to Promote Your Health: * To prevent worsening of your condition and complications * To maintain your health at the optimal level Directions to Meet Your Goals: Take your medications as prescribed Follow your dietary instruction Follow activity as directed Keep your appointments as scheduled Take your immunizations and boosters as scheduled If your symptoms worsen call your PCP, if no PCP go to Urgent Care Center or Emergency Room For 28/02 questions related to your inpatient stay or results of tests pending at discharge, please contact Dr. Hosea Lewis MD at Smoking is Dangerous to Your Health. Avoid second hand smoking
== END 2018-08-22 15:30 | disposition home or self-care (01) | DRG 885 ==
LOC: NEPJ 14:38 → NEDA 21:02 → H270 22:36
PROVIDERS: ADMIT Psychiatry & Neurology Psychiatry; ATTEND Psychiatry & Neurology Psychiatry
CPT/HCPCS: 80048; 80053; 80061; 80164; 80307; 81001; 83036; 84443; 85027; 90791; 99285; J1200; J1630; J2060; Q0163